=== PATIENT | female | born 1995 | race Caucasian/White ===

== ENCOUNTER 2022-11-02 18:29 | Emergency (ER) | payer SELFPAY ==
[2022-11-02 18:40] VITALS: BP 101/69; PULSE 98; RESP 18; TEMP 36.6; O2SAT 97; BMI 26.6
[2022-11-02] MEDS: ondansetron 2 mg/ML SDV 2 mL 4 MG IVP ×2 (19:42→23:56)
[2022-11-02 19:45] VITALS: BP 137/81; PULSE 127; RESP 14; O2SAT 99
[2022-11-02] MEDS: lactated ringers 1,000 ML 999 ML IV (19:46)
[2022-11-02 20:13] LABS: Basophils % 0.3 %; Eosinophils % 0.4 %; Hematocrit 43.5 % (37.0-47.0); Hemoglobin 15.5 g/dL (11.5-15.3); Lymphocytes # 1.6 10^3/uL (0.8-4.8); Lymphocytes % 21.5 %; Mean Corpuscular HGB Conc 35.6 g/dL (30.0-36.0); Mean Corpuscular Hemoglobin 30.2 pg (28.0-34.0); Mean Corpuscular Volume 84.6 fl (81-99); Mean Platelet Volume 9.8 fL (7.4-10.4); Monocytes # 0.4 10^3/uL (0.2-0.9); Monocytes % 5.4 %; Neutrophils # 5.45 10^3/uL (1.8-7.7); Neutrophils % 72.1 %; Nucleated Red Blood Cells % 0 %; Platelet Count 293 10^3/cmm (130-400); Red Blood Count 5.14 10^6/uL (4.1-5.3); Red Cell Distribution Width 11.9 % (12.1-15.1); White Blood Count 7.6 10^3/uL (4.0-10.0)
[2022-11-02 20:35] LABS: Alanine Aminotransferase 30 U/L (0-33); Albumin Level 4.9 g/dL (3.5-5.2); Alkaline Phosphatase 67 U/L (35-105); Anion Gap 20.6 (5-19); Aspartate Amino Transferase 21 U/L (0-32); Blood Urea Nitrogen 8 mg/dL (6-20); Calcium 9.5 mg/dL (8.5-10.5); Carbon Dioxide 18 mmol/L (22-29); Chloride 104 mmol/L (98-107); Globulin 3.1 g/dL (1.3-4.6); Glomerular Filtration Rate 150.3 mL/min (90-130); Glucose 91 mg/dL (65-115); Lipase 26 U/L (13-60); Osmolality Calculated 286 mOsm/kg (285-295); Potassium 3.6 mmol/L (3.5-5.1); Sodium 139 mmol/L (136-145); Total Bilirubin 1.2 mg/dL (0.15-1.2)
--- NOTE | 2022-11-02 20:36 | W.ED.GENADLT ---
HPI - General Adult General: Chief complaint: Abdominal Pain Stated complaint: N/V Time Seen by Provider: 11/02/22 19:16 History of Present Illness: Patient with a history of anxiety, depression, panic attacks and chronic abdominal pain for multiple years with multiple ER and GI work-ups in [place], [place], and otherwise presents the emergency department with exacerbation of her chronic abdominal pain. Patient states she has been having abdominal pain all day, and cannot eat, she is states she is nauseous, more than 10 episodes of yellow vomiting, and diarrhea every time she goes to the bathroom. She has numerous medication allergies but normally receives Zofran and Ativan. She is allergic to Haldol, Compazine, and numerous other medications. She states that she has never been diagnosed with anything, her abdominal symptoms are always attributed to anxiety, she has never been told she has cyclic vomiting syndrome, dumping syndrome, or abdominal migraines. She states usually when she goes to the ER she is having an anxiety exacerbation as well as abdominal exacerbation and that it is usually attributed to her anxiety. She states that she is in town visiting from [place] which is why she presents the emergency department. She denies any fevers, chills, chest pain, shortness of breath, dysuria, urinary urgency, urinary frequency. Review of Systems General: Reports: 10 or more systems reviewed and unremarkable except in HPI and below Physical Exam Const: COMMON NORMALS: no acute distress and patient oriented x3 GENERAL APPEARANCE: cooperative and well kempt ORIENTATION/CONSCIOUSNESS: Yes awake HENMT: COMMON NORMALS: normocephalic, atraumatic, hearing grossly normal bilaterally, external ears normal and Normal external nose present HEAD & SCALP: normocephalic and atraumatic FACE & SINUS: normal facial exam NOSE: Normal external nose present EXTERNAL EAR: Yes external ears normal MOUTH: Normal oral and palatal mucosa present THROAT: posterior oropharynx normal Eye: COMMON NORMALS: Equal, round and reactive pupils present and EOMs intact bilaterally PUPIL: Yes Equal, round and reactive pupils present Neck/C-Spine: COMMON NORMALS: supple GENERAL: Yes normal visual inspection CERVICAL SPINE: No Cervical spine tenderness and No step off deformity Chest: COMMONS NORMALS: normal inspection of the chest Resp: COMMON NORMALS: normal respiratory effort, No retractions, No use of accessory muscles and clear to auscultation bilaterally AUSCULTATION: clear to auscultation bilaterally Cardio: COMMON NORMALS: regular rate and Peripheral pulses 2+ throughout RATE: regular rate PERIPHERAL PULSES: Peripheral pulses 2+ throughout GI: COMMON NORMALS: Normal to inspection, nondistended, normoactive bowel sounds present, Soft to palpation and non-tender PALPATION: Yes Soft to palpation : COMMON NORMALS: Yes no CVA tenderness BLADDER/KIDNEY EXAM: Yes no CVA tenderness Back/Pelvis: COMMON NORMALS: no CVA tenderness and thoracic and lumbar spine normal to inspection THORACIC SPINE/UPPER BACK: Yes normal to inspection LUMBAR SPINE/LOWER BACK: Yes normal to inspection Extremity: COMMON NORMALS: normal to inspection and full ROM GENERAL: No clubbing and No cyanosis Neuro: COMMON NORMALS: patient oriented x3, moves all extremities, no focal motor deficits and no sensory deficits noted Psych: COMMON NORMALS: mental status grossly normal, Normal thought process present, cooperative and activity/motor behavior normal APPEARANCE: Yes well kempt ATTITUDE: Yes calm MOOD & AFFECT: Yes anxious and Yes Other affect and mood findings present (Dramatic) THOUGHT PROCESS: Normal thought process present Skin: COMMON NORMALS: no rashes or lesions noted GENERAL SKIN EXAM: no rashes or lesions noted Course Reevaluation(s): Reevaluation #1: Patient reevaluated having GERD symptoms, requesting medication for GERD, will give her IV Pepcid. Time: 20:36 Reevaluation #2: Advised by nursing patient is refusing her CT, she tolerated p.o. challenge without difficulty, and would like to be discharged home. Patient reevaluated, exam is benign, this is a chronic issue, will plan for discharge with outpatient follow-up. Patient advised to follow-up as directed, return to the emergency department with any new or worsening symptoms or if unable to follow-up as directed or tolerate p.o. intake. Patient verbalized understanding and agreement with this plan, all questions answered. Vital Signs: Vital signs: Vital Signs Temperature 97.9 F 11/02/22 18:40 Pulse Rate 90 11/03/22 00:01 Respiratory Rate 14 11/03/22 00:01 Blood Pressure 164/94 11/02/22 21:45 Pulse Oximetry 96 11/03/22 00:01 Oxygen Delivery Me thod Room Air 11/02/22 23:30 [facility] - General Adult Medical Decision Making Patient's exam is completely benign, this appears to be a chronic issue, per her request we will treat her with Zofran, will hold off on addictive medications such as benzodiazepines and opiates. Given that she has no records in our system we will plan for CT abdomen pelvis, however she states that she has had 3 CTs and 1 ultrasound of her abdomen in the last 2 weeks. Lab Data 11/02/22 20:00 11/02/22 20:00 Laboratory Results WBC 7.6 10^3/uL (4.0-10.0) 11/02/22 20:00 RBC 5.14 10^6/uL (4.1-5.3) 11/02/22 20:00 Hgb 15.5 g/dL (11.5-15.3) H 11/02/22 20:00 Hct 43.5 % (37.0-47.0) 11/02/22 20:00 MCV 84.6 fl (81-99) 11/02/22 20:00 MCH 30.2 pg (28.0-34.0) 11/02/22 20:00 MCHC 35.6 g/dL (30.0-36.0) 11/02/22 20:00 RDW 11.9 % (12.1-15.1) L 11/02/22 20:00 Plt Count 293 10^3/cmm (130-400) 11/02/22 20:00 MPV 9.8 fL (7.4-10.4) 11/02/22 20:00 Neut % (Auto) 72.1 % 11/02/22 20:00 Lymph % (Auto) 21.5 % 11/02/22 20:00 Caroline % (Auto) 5.4 % 11/02/22 20:00 Eos % (Auto) 0.4 % 11/02/22 20:00 Baso % (Auto) 0.3 % 11/02/22 20:00 Neut # (Auto) 5.45 10^3/uL (1.8-7.7) 11/02/22 20:00 Lymph # (Auto) 1.6 10^3/uL (0.8-4.8) 11/02/22 20:00 Caroline # (Auto) 0.4 10^3/uL (0.2-0.9) 11/02/22 20:00 Eos # (Auto) 0.0 10^3/uL (0.0-0.8) 11/02/22 20:00 Baso # (Auto) 0.0 10^3/uL (0.0-0.1) 11/02/22 20:00 Nucleated RBC % (auto) 0 % 11/02/22 20:00 Nucleated RBCs # 0.0 /100WBC 11/02/22 20:00 Sodium 139 mmol/L (136-145) 11/02/22 20:00 Potassium 3.6 mmol/L (3.5-5.1) 11/02/22 20:00 Chloride 104 mmol/L (98-107) 11/02/22 20:00 Carbon Dioxide 18 mmol/L (22-29) L 11/02/22 20:00 Anion Gap 20.6 (5-19) H 11/02/22 20:00 BUN 8 mg/dL (6-20) 11/02/22 20:00 Creatinine 0.5 mg/dL (0.5-0.9) 11/02/22 20:00 GFR Calculation 150.3 mL/min (90-130) H 11/02/22 20:00 Glucose 91 mg/dL (65-115) 11/02/22 20:00 Calculated Osmolality 286 mOsm/kg (285-295) 11/02/22 20:00 Calcium 9.5 mg/dL (8.5-10.5) 11/02/22 20:00 Total Bilirubin 1.2 mg/dL (0.15-1.2) 11/02/22 20:00 AST 21 U/L (0-32) 11/02/22 20:00 ALT 30 U/L (0-33) 11/02/22 20:00 Alkaline Phosphatase 67 U/L (35-105) 11/02/22 20:00 Total Protein 8.0 g/dL (6.6-8.7) 11/02/22 20:00 Albumin 4.9 g/dL (3.5-5.2) 11/02/22 20:00 Globulin 3.1 g/dL (1.3-4.6) 11/02/22 20:00 Lipase 26 U/L (13-60) 11/02/22 20:00 Ser , Semi-Qnt 1.00 mIU/mL 11/02/22 20:00 Urine Color Yellow (Yellow) 11/02/22 23:13 Urine Appearance Cloudy (CLEAR) A 11/02/22 23:13 Urine pH 5 (5-7) 11/02/22 23:13 Ur Specific [place]am 1.030 (1.005-1.030) 11/02/22 23:13 Urine Protein Trace (Negative) 11/02/22 23:13 Urine Glucose (UA) Norm (Normal) 11/02/22 23:13 Urine Ketones 3+ (Negative) H 11/02/22 23:13 Urine Blood Neg (Negative) 11/02/22 23:13 Urine Nitrate Negative (Negative) 11/02/22 23:13 Urine Bilirubin Neg (Negative) 11/02/22 23:13 Urine Urobilinogen Neg mg/dL (Negative) 11/02/22 23:13 Ur Leukocyte Esterase Negative (Negative) 11/02/22 23:13 Urine RBC None /hpf (0-2) 11/02/22 23:13 Urine WBC None /hpf (0-5) 11/02/22 23:13 Ur Squamous Epith Cells 15-25 /hpf (0-5) H 11/02/22 23:13 Amorphous Sediment Not Reportable 11/02/22 23:13 Urine Bacteria 2+ /hpf (NONE) H 11/02/22 23:13 Urine Mucus 3+ /hpf 11/02/22 23:13 Urine Opiates Screen Negative ng/mL (Negative) 11/02/22 23:13 Ur Barbiturates Screen Negative ng/mL (Negative) 11/02/22 23:13 Ur Phencyclidine Scrn Negative ng/mL (Negative) 11/02/22 23:13 Ur Amphetamines Screen Negative ng/mL (Negative) 11/02/22 23:13 U Benzodiazepines Scrn Negative ng/mL (Negative) 11/02/22 23:13 Urine Cocaine Screen Negative ng/mL (Negative) 11/02/22 23:13 U Marijuana (THC) Screen Negative ng/mL (Negative) 11/02/22 23:13 Discharge Plan Discharge Patient Disposition: Home Clinical Impression: Abdominal pain Qualifiers: Abdominal location: generalized Qualified Code(s): R10.84 - Generalized abdominal pain Condition: Stable Discharge Orders: Discharge ED (Routine); Ordered 04/20/23 Ordered By: Pete Welsh Referrals: [facility] [Emergency Department] - (as needed) Patient Instructions: Abdominal Pain (ED), Pain Management Coding Level of Care Code ED Child Care Education Coordinator for Shanta Sullivan
[2022-11-02 20:45] VITALS: BP 133/80; PULSE 126; RESP 18; O2SAT 98
[2022-11-02] MEDS: famotidine 20 mg/2 mL INJ IVP (21:43)
[2022-11-02 21:45] VITALS: BP 164/94; PULSE 81; RESP 14; O2SAT 99
[2022-11-02 23:30] VITALS: PULSE 89; RESP 14; O2SAT 99
[2022-11-02 23:40] LABS: Amphetamines Screen Urine Negative (Negative); Barbiturates Screen Urine Negative (Negative); Benzodiazepines Screen Urine Negative (Negative); Cocaine Screen Urine Negative (Negative); Opiate Screen Urine Negative (Negative); PCP Screen Urine Negative (Negative); THC Screen Urine Negative (Negative)
[2022-11-02 23:47] LABS: Glucose Urine UA Norm (Normal); Ketones Urine 3+ (Negative); Protein Urine Trace (Negative); Urine Appearance Cloudy (CLEAR); Urine Color Yellow (Yellow); pH Urine 5 (5-7)
[2022-11-02 23:48] LABS: Add Urine Culture? No; Add Urine Microscopic? YES; Bacteria Urine 2+ /hpf; Bilirubin Urine Neg (Negative); Blood Urine Neg (Negative); Leukocyte Esterase Urine Negative (Negative); Mucus Urine 3+ /hpf; Nitrate Urine Negative (Negative); Squamous Epithelial Cell Urine 15-25 /hpf (0-5); Urobilinogen Urine Neg (Negative)
[2022-11-03 00:01] VITALS: PULSE 90; RESP 14; O2SAT 96
--- NOTE | 2022-11-07 14:28 | DCPLANNER ---
working manager was triggered to call patient due no primary care physician - patient does not live in the area.
== END 2022-11-03 00:04 | disposition home or self-care (01) ==
PROVIDERS: Emergency Medicine; Emergency Provider Emergency Medicine
DX: R10.84 Generalized abdominal pain (principal)
CPT/HCPCS: 80053; 80306; 81001; 83690; 84702; 85025; 96361; 96374; 96375; 96376; 99284; J2405; J3490; J7120